=== PATIENT | female | born 1980 | race Caucasian/White ===

== ENCOUNTER 2018-09-22 13:23 | Outpatient (CLI) | payer OTHER ==
--- NOTE | 2018-09-22 15:52 | Mammography Report ---
Reason: LEFT BREAST PAIN Procedure Date: 09/22/2018 Accession Number: [id number] / [id number] Procedure: RAMÓN - Diagnostic Dig Bilat CPT Code: FULL RESULT: EXAM: Diagnostic Dig Bilat DATE: 09/22/2018 2:16 PM CLINICAL HISTORY: Diagnostic mammogram. History of nulliparity and early menses. Family history of breast cancer in the grandmother likely in her 60s. The patient recently found out that her sister is Brca mutation positive. TECHNIQUE: Bilateral CC and MLO views were obtained. COMPARISON: None FINDINGS: The breasts demonstrate diffuse fatty replacement bilaterally. No suspicious calcifications, masses or architectural distortion is identified. IMPRESSION: Negative examination RECOMMENDATION: Recommend routine annual Screening mammography starting at the age of 40 unless otherwise clinically indicated; for example if there is clinical suspicion that this patient may also carry the genetic mutation. BIRADS CATEGORY 1: Negative STANDARD QUALIFYING STATEMENTS: 1. This examination was not reviewed with the aid of Computer-Aided Detection (CAD). 2. A negative or benign imaging report should not delay biopsy if clinically suspicious findings are present. Consider surgical consultation if warrented. More than 5% of cancers are not identified by imaging. 3. Dense breasts may obscure an underlying neoplasm. 4. This examination was reviewed with the aid of 3D imaging (tomography).
== END 2018-09-22 13:24 | disposition home or self-care (01) ==
LOC: DI 13:23
PROVIDERS: ATTEND Internal Medicine
DX: N64.4 Mastodynia (principal); Z80.3 Family history of malignant neoplasm of breast
CPT/HCPCS: 77066

== ENCOUNTER 2018-12-12 12:44 | Outpatient (CLI) | payer OTHER ==
[2018-12-12] MEDS ORDERED: GADOBUTROL 10 MMOL/10 ML VIAL ONE (13:08)
[2018-12-12] MEDS ORDERED: GADOBUTROL 10 MMOL/10 ML VIAL IVP ONE (14:02)
--- NOTE | 2018-12-12 15:53 | MRI Report ---
Reason: CHRONIC NECK PAIN Procedure Date: 12/12/2018 Accession Number: [id number] / [id number] Procedure: MRI - Cervical Spine W/WO CPT Code: FULL RESULT: EXAM: MRI CERVICAL SPINE WITHOUT AND WITH CONTRAST. EXAM DATE: 12/12/2018 02:03 PM. CLINICAL HISTORY: Chronic neck pain. Bilateral arm pain, numbness, and weakness. COMPARISON: None. TECHNIQUE: Multiplanar, multisequence T1-weighted and fluid-sensitive sequences of the cervical spine before and after administration of intravenous contrast. Other: None. IV contrast: 9 cc Gadavist. FINDINGS: Neurologic Structures: The visualized posterior fossa structures are unremarkable. No signal abnormality in the visualized spinal cord. The spinal canal is capacious. Alignment: No scoliosis or spondylolisthesis. Bone Marrow: No gross fractures or bone lesions. No marrow edema or abnormal enhancement. Interspace Levels/Facets: C1-C2: Unremarkable on sagittal series. C2-C3: Unremarkable. C3-C4: Unremarkable. C4-C5: Unremarkable. C5-C6: Unremarkable. Patchy T2 hypointense disk signal is seen. Minimal dorsal and ventral disk bulge. C6-C7: Unremarkable. Minimal dorsal disk bulge. C7-T1: Unremarkable. Spinal Canal: No enhancing lesions within the spinal canal. No epidural abscess. Musculature: Normal. No edema, enhancement, or fatty atrophy. Other: The paravertebral and prevertebral soft tissues are normal. IMPRESSION: 1. Unremarkable MRI of the cervical spine. Cervical spinal cord is normal in appearance. No abnormal enhancement. 2. The cervical spinal canal is capacious. No significant spondylosis. No canal or foraminal stenosis. -C5-C6: Minimal dorsal and ventral disk bulge. -C6-C7: Minimal dorsal disk bulge. RADIA
== END 2018-12-12 12:45 | disposition home or self-care (01) ==
LOC: DI 12:44
PROVIDERS: ATTEND Psychiatry & Neurology Neurology
DX: M54.2 Cervicalgia (principal); G89.29 Other chronic pain; M25.512 Pain in left shoulder; M79.18 Myalgia, other site
CPT/HCPCS: 72156; A9585

== ENCOUNTER 2020-03-21 07:54 | Outpatient (CLI) | payer OTHER ==
--- NOTE | 2020-03-21 09:32 | XRAY Report ---
Reason: RIGHT ELBOW PAIN Procedure Date: 03/21/2020 Accession Number: [id number] / [id number] Procedure: WCP - Elbow 3 View RT CPT Code: Final Report FULL RESULT: PROCEDURE: Elbow 3 View RT INDICATIONS: RIGHT ELBOW PAIN TECHNIQUE: 3 views of the elbow were acquired. COMPARISON: None FINDINGS: Bones: No fractures or dislocations. No suspicious bony lesions. Soft tissues: No elbow joint effusion. No suspicious soft tissue calcifications. IMPRESSION: No acute fracture. No osseous lesion. If symptoms and/or clinical suspicion for pathology continue, further assessment with repeat plain films, or advanced imaging (e.g., CT, MRI, or bone scan) is recommended for further assessment. Reviewed by: Cynthia Reese MD on 03/21/2020 9:30 AM PDT Approved by: Cynthia Reese MD on 03/21/2020 9:30 AM PDT Station ID: [id number]
== END 2020-03-21 23:59 | disposition home or self-care (01) ==
LOC: DI.WCP 07:54
PROVIDERS: ATTEND Orthopaedic Surgery
DX: M25.529 Pain in unspecified elbow (principal)

== ENCOUNTER 2022-12-18 13:18 | Outpatient (CLI) | payer OTHER ==
--- NOTE | 2022-12-21 11:15 | Mammography Report ---
BILATERAL DIGITAL SCREENING MAMMOGRAM 3D/2D: 12/18/2022 CLINICAL: Routine screening. Comparison is made to exam dated: 09/22/2018 mammogram - [facility]. Both breasts are almost entirely fatty (category a/<25% glandular tissue). No significant masses, calcifications, or other findings are seen in either breast. There has been no significant interval change. IMPRESSION: NEGATIVE There is no mammographic evidence of malignancy. A 1 year screening mammogram is recommended. Based on the Tyrer Cuzick model (a risk assessment model) the patients lifetime risk is 6.4% and her 10 year risk is 0.9%. According to the ACR, ACS, and NCCN guidelines, an annual breast MRI exam johan g with mammogram is recommended if the patients lifetime risk is 20% or greater. This exam was interpreted at Station ID: [id number]. NOTE: For mammograms, a report in lay terms will be sent to the patient. Approximately 15% of breast malignancies will not be visualized mammographically. In the management of a palpable breast mass, a negative mammogram must not discourage biopsy of a clinically suspicious lesion. Electronically Signed By: Madgaleno torres/chriss:12/18/2022 17:30:43 letter sent: No_Letter ACR BI-RADS Category 1: Negative 3341F PARENCHYMAL PATTERN: (F) - The breast(s) demonstrate(s) diffuse fatty replacement. BI-RADS CATEGORY: (1) - 1 Mammogram [id number] 1 year screening LATERALITY: (B)
== END 2022-12-18 13:19 | disposition home or self-care (01) ==
LOC: DI 13:18
PROVIDERS: ATTEND Internal Medicine
DX: Z12.31 Encounter for screening mammogram for malignant neoplasm of breast (principal)

== ENCOUNTER 2023-12-24 10:56 | Outpatient (CLI) | payer OTHER ==
--- NOTE | 2023-12-24 13:34 | CT Report ---
PROCEDURE: Chest WO INDICATIONS: ASTHMA TECHNIQUE: A CT scan of the chest was performed. Intravenous contrast media was not administered. Images were re corded and evaluated at appropriate window settings. Reformats: axial MIP of the chest, coronal and s agittal. For radiation dose reduction, the following was used: automated exposure control, adjustment of mA and/or kV according to patient size. COMPARISON: None. FINDINGS: Image quality: Diagnostic. Chest wall and lower neck: No thyroid nodule which requires sonographic follow up. No axillary or sup raclavicular adenopathy by size. Lungs and pleura: No consolidation. No pleural effusions. No pneumothorax. No suspicious pulmonary n odules which require follow up. Mosaic attenuation. Mediastinum: Heart size is normal. No pericardial effusion. No large vessel abnormality. No mediastin al adenopathy by size criteria. Bones: No aggressive osseous abnormality. Upper Abdomen: Unremarkable. IMPRESSION: Mosaic attenuation of the lungs, suggestive of diffuse air trapping in the setting of small airways d isease. Reviewed by: Dusty Bran MD on 12/24/2023 1:32 PM PDT Approved by: Dusty Bran MD on 12/24/2023 1:32 PM PDT Station ID: [id number]
== END 2023-12-24 10:57 | disposition home or self-care (01) ==
LOC: DI 10:56
PROVIDERS: ATTEND Internal Medicine
DX: R06.09 Other forms of dyspnea (principal)

== ENCOUNTER 2024-04-28 12:53 | Outpatient (CLI) | payer OTHER ==
--- NOTE | 2024-05-01 13:35 | MRI Report ---
PROCEDURE: Hip LT WO INDICATIONS: L HIP PAIN TECHNIQUE: Noncontrast coronal T1 spin echo and STIR through the bony pelvis. Coronal and axial T2 fast spin ec ho with fat saturation, sagittal T1 spin echo, and oblique axial T2 fast spin echo with fat saturatio n through the hip. COMPARISON: None. FINDINGS: Image quality: Excellent. Bones and joints: Symmetric appearing mild bilateral hip joint osteophytic changes are seen with supe rior joint space narrowing and subchondral sclerosis. There is no marrow edema. No intraosseous lesio ns or fractures. No avascular necrosis of the femoral heads. Mild degenerative disc disease in visua lized lower lumbar spine is seen. Tendons: Distal left gluteus medius and minimus tendinosis at their insertions on greater trochanter is seen. Low-grade partial-thickness tear involving distal gluteus medius tendon is also seen. The il iopsoas tendon appears intact, without adjacent bursal fluid collections. The origin of the hamstrin g tendon is intact at the ischial tuberosity. Labrum and cartilage: Thinning of articulating cartilage over left femoral head is seen. There is sig nal abnormality and fraying of superior anterior left hip labrum concerning for subtle superior anter ior labral tear. The alpha angle of the femur is within normal limits at less than 55 degrees. Soft tissues: Visualized muscles demonstrate normal bulk and internal signal. The proximal sciatic neurovascular bundle appears normal adjacent to the hamstring tendons. No free pelvic fluid. Bladde r wall thickness is normal. Genitourinary structures and bowel loops appear normal where visualized. Oval cystic structure in left adnexa measures 2.7 x 1.7 cm in size is seen. IMPRESSION: 1. Symmetric appearing mild bilateral hip joint osteoarthritis. No pelvic or hip fracture. No evidenc e of avascular necrosis of femoral head. 2. Mild degenerative disc disease in visualized lower lumbar spine. 3. Low-grade partial-thickness tear involving distal left gluteus medius tendon at its insertion on g reater trochanter. Distal left gluteus medius minimus tendinosis. No other muscle or tendon signal ab normalities. 4. Suggestion of subtle superior anterior left hip labral tear. 5. Likely 2.7 x 1.7 cm left ovarian cyst. Reviewed by: Juan Ding MD on 05/01/2024 1:33 PM PDT Approved by: Juan Ding MD on 05/01/2024 1:33 PM PDT Station ID: [id number]
== END 2024-04-28 12:54 | disposition home or self-care (01) ==
LOC: DI 12:53
PROVIDERS: ATTEND Internal Medicine
DX: M16.0 Bilateral primary osteoarthritis of hip (principal); M51.36 Other intervertebral disc degeneration, lumbar region; S76.012A Strain of muscle, fascia and tendon of left hip, initial encounter